=== PATIENT | female | born 1985 | race African-American/Black ===

== ENCOUNTER 2024-02-27 14:00 | Emergency (ER) | payer MEDICAID, OTHER ==
[~2024-02-27] VITALS: Ht 165.1 cm; Wt 55.0 kg
[2024-02-27 14:11] VITALS: BP 152/91; PULSE 81; TEMP 98.3; O2SAT 100
[2024-02-27 14:29] LABS: BASOPHILS % 0.3 % (0.0-2.0); EOSINOPHILS % 2.5 % (0.0-5.0); HEMATOCRIT. 32.4 % (36.0-48.0); HEMOGLOBIN. 11.4 g/dL (12.0-16.0); LYMPHOCYTES % 34.2 % (20.0-50.0); MEAN CORPUSCULAR HEMOGLOBIN 28.9 pg (28.0-32.0); MEAN CORPUSCULAR HGB CONC 35.3 g/dL (31.0-37.0); MEAN CORPUSCULAR VOLUME 81.7 fL (81.0-99.0); MEAN PLATELET VOLUME 7.8 fl (7.4-10.4); MONOCYTES % 7.4 % (2.0-8.0); NEUTROPHILS % 55.6 % (40.0-76.0); PLATELET 262 x1000/uL (130-400); RED BLOOD CELL COUNT 3.97 mill/uL (4.2-5.4); RED CELL DISTRIBUTION WIDTH 13.4 % (11.6-14.6); WHITE BLOOD COUNT 5.7 x1000/uL (4.5-11.0)
[2024-02-27 14:33] LABS: POTASSIUM 3.5 mEq/L (3.5-5.1)
[2024-02-27 14:35] LABS: CALCIUM 9.1 mg/dL (8.7-10.4)
[2024-02-27 14:39] LABS: CREATININE 1.3 mg/dL (0.6-1.0)
[2024-02-27 17:30] VITALS: RESP 16
== END 2024-02-27 17:37 | disposition still patient (30) ==
LOC: ER 14:00
DX: O20.0 Threatened abortion (principal); I10 Essential (primary) hypertension; Z3A.08 8 weeks gestation of pregnancy
CPT/HCPCS: 36415; 76801; 80048; 81025; 84702; 85025; 86850; 86900; 99284